=== PATIENT | female | born 1960 | race Caucasian/White ===

== ENCOUNTER 2019-07-23 09:07 | Emergency (ER) | payer MEDICARE ==
[~2019-07-23] VITALS: Ht 160 cm; Wt 88.5 kg
[~2019-07-23 09:07] MED LIST: AMOXICILLIN500 MG PO; AUGMENTIN 875 M1 TAB PO; CIPRODEX 0.3%-7.5 ML OT; DARVOCET N 1001 TAB PO; MEDROL DOSEPAK4 MG PO; MOBIC15 MG PO; POLYTRIM 1000010 ML OPH; PROAIR HFA8.5 GM IH; RANITIDINE 7575 MG PO; ULTRAM50 MG PO; VICODIN 5/500 505 MG PO; VICODIN 500 MG-1 TAB PO; ZITHROMAX Z PA250 MG PO
[2019-07-23] MEDS ORDERED: SEPTDS PO (09:20)
[2019-07-23] MEDS ORDERED: CEPHALEXIN500 M1 PO (09:20)
== END 2019-07-23 09:21 | disposition home or self-care (01) ==
LOC: ED 09:07
DX: N61.1 Abscess of the breast and nipple (principal); K21.9 Gastro-esophageal reflux disease without esophagitis; J45.909 Unspecified asthma, uncomplicated; Z79.899 Other long term (current) drug therapy

== ENCOUNTER → 2019-09-15 | Outpatient (CLI) | payer OTHER ==
[~2019-09-15] MED LIST changes: +CEPHALEXIN500 M1 PO; +SEPTDS PO
== END | disposition home or self-care (01) ==
LOC: MAMMO 10:00
DX: N63.10 Unspecified lump in the right breast, unspecified quadrant (principal)

== ENCOUNTER 2020-07-15 10:30 | Emergency (ER) | payer OTHER ==
[2020-07-15] MEDS ORDERED: PREDNISONE20 M1 PO (11:49)
[2020-07-15] MEDS ORDERED: ROBAXIN-750750 MG PO (11:49)
== END 2020-07-15 12:52 | disposition home or self-care (01) ==
LOC: ED 10:30
DX: M54.32 Sciatica, left side (principal); Z79.899 Other long term (current) drug therapy; Z90.49 Acquired absence of other specified parts of digestive tract; Z98.890 Other specified postprocedural states

== ENCOUNTER 2021-07-21 10:48 | Emergency (ER) | payer OTHER ==
[~2021-07-21] VITALS: Ht 160 cm; Wt 86.2 kg
[~2021-07-21 10:48] MED LIST changes: +PREDNISONE20 M1 PO; +ROBAXIN-750750 MG PO
[2021-07-21] MEDS ORDERED: OXYBUTYNIN5 MG PO (11:12)
[2021-07-21] MEDS ORDERED: FLUOXETINE HYDR20 M1 PO (11:12)
[2021-07-21] MEDS ORDERED: ADVAIR 250/501 EA INH (11:13)
[2021-07-21] MEDS ORDERED: VIBRAMYCIN100 MG PO (14:30)
[2021-07-21] MEDS ORDERED: PREDNISONE20 M1 PO (14:30)
== END 2021-07-21 14:45 | disposition home or self-care (01) ==
LOC: ED 10:48
DX: J45.901 Unspecified asthma with (acute) exacerbation (principal); Z20.822 Contact with and (suspected) exposure to COVID-19; Z79.899 Other long term (current) drug therapy

== ENCOUNTER → 2022-09-18 | Outpatient (CLI) | payer OTHER ==
[~2022-09-18] MED LIST changes: +ADVAIR 250/501 EA INH; +FLUOXETINE HYDR20 M1 PO; +OXYBUTYNIN5 MG PO; +VIBRAMYCIN100 MG PO
== END | disposition home or self-care (01) ==
LOC: RAD 14:44
PROVIDERS: ATTEND Nurse Practitioner
DX: M77.32 Calcaneal spur, left foot (principal); M79.89 Other specified soft tissue disorders

== ENCOUNTER 2023-05-16 13:18 | Emergency (ER) | payer OTHER ==
[~2023-05-16] VITALS: Ht 160 cm; Wt 90.7 kg
[2023-05-16 13:59] LABS: BASO % 0.4 % (0.0-1.0); EOS # 0.2 10*3/uL (0.0-0.4); EOS % 3.3 % (1.0-4.0); HEMATOCRIT 47.1 % (37.0-47.0); LYMPH # 2.1 10*3/uL (1.3-4.4); LYMPH % 28.5 % (27.0-41.0); MEAN CELL VOLUME 91.1 fl (81.0-99.0); MEAN CORPUSCULAR HGB 29.8 pg (27.0-31.0); MEAN CORPUSCULAR HGB CONC 32.7 g/dl (33.0-37.0); MONO # 0.6 10*3/uL (0.1-1.0); MONO % 8.8 % (3.0-9.0); NEUT # 4.2 10*3/uL (2.3-7.9); NEUT % 57.6 % (47.0-73.0); PLATELET COUNT AUTOMATED 218 10*3/uL (130-400); RED BLOOD COUNT 5.17 10*6/uL (4.10-5.10); RED CELL DISTRI WIDTH 12.7 % (0-14.5); WHITE BLOOD COUNT 7.3 10*3/uL (4.8-10.8)
[2023-05-16] MEDS ORDERED: ERYTHROMYCIN OPH1 GM OPH (14:13)
[2023-05-16 14:27] LABS: ALKALINE PHOSPHATASE 65 U/L (46-116); BUN 12 mg/dl (9-23); CHLORIDE 106 mmol/L (98-107); POTASSIUM 3.9 mmol/L (3.4-5.1); SGPT/ALT 15 U/L (10-49); TOTAL PROTEIN 7.4 gm/dL (6.0-8.0)
[2023-05-16] MEDS ORDERED: AMOX-CLAV 875-1 EACH PO (15:17)
[2023-05-16] MEDS ORDERED: TOBRADEX 0.1%-0.5 ML OPH (15:17)
[2023-05-16] MEDS ORDERED: AMOX-CLAV 875-1 EACH JT (15:33)
[2023-05-16] MEDS ORDERED: TOBRAMYCIN5 ML OP (15:33)
== END 2023-05-16 15:49 | disposition home or self-care (01) ==
LOC: ED 13:18
PROVIDERS: Emergency Medicine
DX: S05.01XA Injury of conjunctiva and corneal abrasion without foreign body, right eye, initial encounter (principal); L03.213 Periorbital cellulitis; H10.9 Unspecified conjunctivitis; K21.9 Gastro-esophageal reflux disease without esophagitis; J45.909 Unspecified asthma, uncomplicated; Z90.49 Acquired absence of other specified parts of digestive tract; Z98.890 Other specified postprocedural states; X58.XXXA Exposure to other specified factors, initial encounter; Y93.89 Activity, other specified; Y92.89 Other specified places as the place of occurrence of the external cause; Y99.8 Other external cause status

== ENCOUNTER 2024-12-04 18:01 | Emergency (ER) | payer OTHER ==
[~2024-12-04] VITALS: Ht 160 cm; Wt 90.7 kg
[~2024-12-04 18:01] MED LIST changes: +AMOX-CLAV 875-1 EACH JT; +AMOX-CLAV 875-1 EACH PO; +ERYTHROMYCIN OPH1 GM OPH; +TOBRADEX 0.1%-0.5 ML OPH; +TOBRAMYCIN5 ML OP
[2024-12-04] MEDS ORDERED: Albuterol Sulf/Ipratropium 3 ML VIAL NEB ONE (18:20)
[2024-12-04] MEDS ORDERED: methylPREDNISolone sod succ 125 MG VIAL IV ONE (18:20)
[2024-12-04 18:39] LABS: BASO % 0.3 % (0.0-1.0); EOS # 0.3 10*3/uL (0.0-0.4); EOS % 5.2 % (1.0-4.0); HEMATOCRIT 46.2 % (37.0-47.0); MEAN CELL VOLUME 93.3 fl (81.0-99.0); MEAN CORPUSCULAR HGB 29.3 pg (27.0-31.0); MEAN CORPUSCULAR HGB CONC 31.4 g/dl (33.0-37.0); MEAN PLATELET VOLUME 10.9 fl (9.6-12.3); MONO # 0.8 10*3/uL (0.1-1.0); MONO % 12.6 % (3.0-9.0); NEUT # 3.3 10*3/uL (2.3-7.9); NEUT % 55.9 % (47.0-73.0); PLATELET COUNT AUTOMATED 182 10*3/uL (130-400); RED BLOOD COUNT 4.95 10*6/uL (4.10-5.10); RED CELL DISTRI WIDTH 12.7 % (0-14.5)
[2024-12-04 18:59] LABS: BUN 9 mg/dl (9-23); CHLORIDE 109 mmol/L (98-107); POTASSIUM 3.8 mmol/L (3.4-5.1)
[2024-12-04] MEDS ORDERED: AZITHROMYCIN 250 MG TAB PO ONE (20:45)
[2024-12-04] MEDS ORDERED: PREDNISONE20 M1 PO (20:45)
[2024-12-04] MEDS ORDERED: AVPAK AZITHROM250 M1 PO (20:45)
== END 2024-12-04 20:58 | disposition home or self-care (01) ==
LOC: ED 18:01
PROVIDERS: Nurse Practitioner Family
DX: J45.901 Unspecified asthma with (acute) exacerbation (principal); K21.9 Gastro-esophageal reflux disease without esophagitis; Z90.49 Acquired absence of other specified parts of digestive tract; Z98.890 Other specified postprocedural states